=== PATIENT | male | born 1945 | race Caucasian/White ===

== ENCOUNTER 2017-05-04 13:44 | Emergency (ER) | payer MEDICARE, SELFPAY ==
--- NOTE | 2017-05-04 10:41 | ECHOL_ITS ---
Reason For Study: Cardiac arrest Procedure This was a limited 2D transthoracic echocardiogram. Exam performed portable in ED. Left Ventricle Severely dilated left ventricle. The estimated ejection fraction is 7 %. Severe segmental systolic dysfunction (see wall motion). Severe hypokinesis of the mid anteroesptal wall. Akinetic ventricle. Right Ventricle Normal RV size. Moderately severe global right ventricular systolic dysfunction. Mitral Valve Moderate (2+) eccentric mitral valve insufficiency. Pericardium/Pleural No pericardial effusion. MMode/2D Measurements & Calculations LVIDd: 6.5 cm IVSd: 1.1 cm Ao root diam: 2.8 cm LVIDs: 5.9 cm LVPWd: 1.5 cm RVDd: 3.3 cm FS: 10.1 % LAV(MOD-sp4): 55.1 ml LA A4 area: 20.7 cm2 RA A4 area: 17.1 cm2 Interpretation Summary Severely dilated left ventricle. The estimated ejection fraction is 7 %. Severe segmental systolic dysfunction (see wall motion). Moderate (2+) eccentric mitral valve insufficiency. Ordering Physician: Donn Woo Referring Physician: Donn Woo Performed By: Ibeth Vicente RDCS
[2017-05-04 13:45] VITALS: BP 102/80; PULSE 40; RESP 18
[2017-05-04 13:47] VITALS: BP 100/67; PULSE 40; RESP 20; O2SAT 99; BMI 27.6
[2017-05-04 13:56] VITALS: PULSE 40; RESP 14; O2SAT 96
--- NOTE | 2017-05-04 14:27 | ED.RN ---
MULTIPLE ATTEMPTS TO CONTACT (SO) AND DAUGHTER (FELICIA) BY PHONE. NO RESPONSE. CALL TO [facility] AT THE [facility] TO INQUIRE ABOUT FAMILY. STATED, NO FAMILY WITH PATIENT AT THE [facility].
[2017-05-04 14:36] LABS: Absolute Lymphocyte Count 4.06 X10^3/ul (0.83-4.51); Absolute Neutrophil Count 4.2 X10^3/uL (2.0-7.7); Basophil# 0.04 X10^3/uL; Basophil% 0.4 % (0-1); Eosinophil# 0.16 X10^3/uL; Eosinophils% 1.7 % (0-5); Hemoglobin 7.9 g/dl (13.0-16.5); Lymphocyte # 4.06 X10^3/ul (4.0); Lymphocyte % 43.4 % (19-41); Mean Corp Hgb Conc 31.6 g/gl (32-36); Mean Corpuscular Hgb 34.3 pg (27.0-32.0); Mean Corpuscular Volume 108.7 fL (80-94); Monocyte# 0.78 X10^3/uL; Monocyte% 8.3 % (0-10); Neutrophil # 4.16 X10^3/uL (2.7-7.7); Neutrophil % 44.6 % (47-70); Platelet Count 69 K/mm3 (150-450); RBC Distribution Width CV 15.1 % (11.6-14.6); RBC Distribution Width SD 58.8 fl (35.1-43.9); White Blood Count 9.4 K/mm3 (4.4-11.0)
[2017-05-04 14:37] LABS: Base Excess -25 mmol/L (-2 to +2); Bicarbonate 7.6 mmol/L (22-26); Blood Gas Specimen Type ART; FI02 100; PO2 523 mmHG (75-100); SITE L Femoral; SO2 100 % (95-99); Time Given 1440; Total Carbon Dioxide 9 mmol/L; pCO2 35.8 mmHg (35-45); pH 6.94 (7.35-7.45)
[2017-05-04 14:38] LABS: Differential Indicated SCAN CRITERIA MET; POSITIVE COUNT NO; POSITIVE DIFFERENTIAL NO; POSITIVE MORPHOLOGY YES
[2017-05-04 14:39] LABS: Absolute Nucleated RBC Count 0.24 10^3/uL (0-5); NRBC Flagged by Analyzer 2.6 % (0-5)
[2017-05-04 14:43] LABS: AST(SGOT) 39 U/L (15-37); Alanine Aminotransfer ALT/SGPT 51 U/L (12-78); Albumin, Serum 3.2 g/dL (3.4-5.0); Alkaline Phosphatase 48 U/L (45-117); Anion Gap 18 (5-15); BUN 29 mg/dL (7-18); BUN/Creat Ratio 15.2 RATIO (10-20); Bilirubin, Direct 0.13 mg/dL (0.00-0.30); Calcium,Total 8.6 mg/dL (8.5-10.1); Chloride 105 mmol/L (98-107); Creatinine, Serum 1.91 mg/dL (0.70-1.30); EST Glomerular Filtration Rate 37 mL/min (>60); Est Glom Filt Rate - Afr Amer 45 mL/min (>60); Estimated Creatinine Clearance 33.17 ml/min; Globulin 3.3 g/dL (2.3-3.5); Glucose 291 mg/dL (70-110); Lipase 149 U/L (73-393); Potassium 5.4 mmol/L (3.5-5.1); Protein, Total 6.5 g/dL (6.4-8.2); Sodium Level 139 mmol/L (136-145)
[2017-05-04 14:47] LABS: International Normalized Ratio 1.5; Prothrombin Time (Protime)PT. 17.6 SECONDS (11.7-14.9)
[2017-05-04 14:48] LABS: Partial Thromboplast Time 36.2 Seconds (24.1-36.2)
--- NOTE | 2017-05-04 15:11 | CHAPLAIN ---
Responded to Code in ED; patient is being attended to by medical team; consulted staff to see if family members were present; staff is making attempts to contact family but were not successful; pt was moved to [employer] [facility] [employer] [facility];
--- NOTE | 2017-05-04 15:31 | ED.VISSUMM ---
- ER Visit Summary Date of Service: 05/04/17 Chief Complaint: Cardiac arrest History of Present Illness: The patient is a 72 M who was out at the [facility] today when he suddenly collapsed. Standing nearby was a sharepoint application architect who did not feel a pulse and began CPR. He was more responsive for squad in route saying basically 1-2 word sentences. Upon arrival in the ER the patient is clutching his chest and I asked him if he is hurting and he watches his chest. He is able to tell me 1 word sentences in between agonal breaths. Physical Examination: Patient is bradycardic and 40. This appears paced respirations are 32 and agonal 99% on nonrebreather blood pressure 100/67 Gen: Well-nourished well-developed Head: Normocephalic atraumatic Eyes: Perrl EOMI ENT: TMs clear no rhinorrhea moist mucous membranes Neck: Supple no lymphadenopathy no JVD nontender there is a dusky purple hue to his chest and neck CVS: Patient is bradycardic no significant murmur Respiratory: Agonal respirations Abdomen: Soft nontender nondistended normal bowel sounds no masses Back: Nontender Extremity: Nontender no edema Skin: Parlor diaphoretic purplish hue to neck and upper chest Neuro: Lethargic unable to participate in neurologic exam Test Results: EKG demonstrates a ventricular paced rhythm at a rate of 40. When compared to prior concerning features R in V3 V4 with concerning for acute coronary syndrome Emergency Department Course and Treatment: Need for protection of the airway was immediately recognized. Patient underwent RSI and an 80 endotracheal tube was placed on the first attempt without any difficulty. I equal breath sounds and good color change noted. I spoke with Dr. Melgar who is on-call for cardiology who was scrubbed in the [facility]. who is the STEMI doctor came to the emergency department. The patient went into cardiac arrest. ACLS was performed with return of circulation. Labs were drawn from a left femoral vena puncture by this physician as well as an ABG. His were done under ultrasound guidance. The patient continued to alternate between cardiac arrest and return of circulation. Decision to transport the patient to the [facility] was made. Discussion for hypothermia was made and interventionalists declined at the current time. Disposition: Admit Impression: 1. Acute coronary syndrome 2. Cardiac arrest 3. Intubation by emergency physician 4. Critical care time 35 minutes ED Disposition - Plan for ED Patient: Disposition: Acute Care Hospital [facility] Chief Complaint: Unresponsive Referrals: Ingrid Jauregui DO [Primary Care Provider] -
--- NOTE | 2017-05-04 15:36 | ED.DCSUM_ITS ---
- ER Visit Summary Date of Service: 05/04/17 Chief Complaint: Cardiac arrest History of Present Illness: The patient is a 72 M who was out at the [facility] today when he suddenly collapsed. Standing nearby was a overcaster who did not feel a pulse and began CPR. He was more responsive for squad in route saying basically 1-2 word sentences. Upon arrival in the ER the patient is clutching his chest and I asked him if he is hurting and he watches his chest. He is able to tell me 1 word sentences in between agonal breaths. Physical Examination: Patient is bradycardic and 40. This appears paced respirations are 32 and agonal 99% on nonrebreather blood pressure 100/67 Gen: Well-nourished well-developed Head: Normocephalic atraumatic Eyes: Perrl EOMI ENT: TMs clear no rhinorrhea moist mucous membranes Neck: Supple no lymphadenopathy no JVD nontender there is a dusky purple hue to his chest and neck CVS: Patient is bradycardic no significant murmur Respiratory: Agonal respirations Abdomen: Soft nontender nondistended normal bowel sounds no masses Back: Nontender Extremity: Nontender no edema Skin: Parlor diaphoretic purplish hue to neck and upper chest Neuro: Lethargic unable to participate in neurologic exam Test Results: EKG demonstrates a ventricular paced rhythm at a rate of 40. When compared to prior concerning features R in V3 V4 with concerning for acute coronary syndrome Emergency Department Course and Treatment: Need for protection of the airway was immediately recognized. Patient underwent RSI and an 80 endotracheal tube was placed on the first attempt without any difficulty. I equal breath sounds and good color change noted. I spoke with Dr. Melgar who is on-call for cardiology who was scrubbed in the Road Machine Operator. who is the STEMI doctor came to the emergency department. The patient went into cardiac arrest. ACLS was performed with return of circulation. Labs were drawn from a left femoral vena puncture by this physician as well as an ABG. His were done under ultrasound guidance. The patient continued to alternate between cardiac arrest and return of circulation. Decision to transport the patient to the Road Machine Operator was made. Discussion for hypothermia was made and interventionalists declined at the current time. Disposition: Admit Impression: 1. Acute coronary syndrome 2. Cardiac arrest 3. Intubation by emergency physician 4. Critical care time 35 minutes ED Disposition - Plan for ED Patient: Disposition: Acute Care Hospital [facility] Chief Complaint: Unresponsive Referrals: Ingrid Jauregui DO [Primary Care Provider] -
--- NOTE | 2017-05-04 16:14 | HP.PCM_ITS ---
History of Present Illness Date of Admission: 05/04/17 Chief Complaint: Cardiac arrest The patient is a 72 year old M with history of AICD, probably because of systolic heart failure, for secondary prevention about 12 years ago was brought in to ER in unresponsive and unconscious state. Hard to that, patient was found collapsed in [facility] and was started CPR by a schedule planning manager at the scene. As per ER note, patient was found responsive foreshorten by squad. He was found to have clutching his chest in the ER, In the ER, was bradycardic, heart rate 40s, respiratory rate 32 with agonal breathing, BP 100/67, then was unresponsive and CODE BLUE was called. ACLS was performed with return of circulation. Patient was intubated. EKG shows ventricular paced rhythm at 40 bpm. Pt was taken to Embedded Nurse. [] ABG showed pH 6.94/35/ 523 on umbo bag. CBC shows hemoglobin 7.9, platelet count 69, WBC 9.4 thousand. Chemistry significant for acute kidney injury, creatinine 1.91, baseline creatinine 1.44 on 04/29/2017. K5.4. G 291. Patient had bone marrow biopsy on 04/09/17 which reported as mild increase of plasma cells, polytypic in nature. Lymphocytes polytypic in nature. Past Medical History Allergies No Known Allergies Allergy (Verified 04/08/17 13:29) Home Medications: Ambulatory Orders Medication Instructions Recorded Carvedilol [Coreg] 12.5 mg PO BID 04/06/17 Digoxin [Lanoxin] 125 mcg PO DAILY 04/06/17 Furosemide [Lasix] 40 mg PO DAILY 04/06/17 Glimepiride [Amaryl] 4 mg PO BID 04/06/17 Levothyroxine Sodium [Levoxyl] 75 mcg PO DAILY 04/06/17 Metformin HCl [Metformin HCl ER] 500 mg PO TID 04/06/17 Simvastatin [Zocor] 20 mg PO QHS 04/06/17 Spironolactone [Aldactone] 25 mg PO DAILY 04/06/17 Valsartan [Diovan] 80 mg PO DAILY 04/06/17 Brimonidine Tartrate/Timolol 5 ml OP BID 04/08/17 [Combigan 0.2%-0.5% Eye Drops] Cholecalciferol (Vitamin D3) 1,000 capsule PO DAILY 04/08/17 [Vitamin D3] Dorzolamide 2% 1 drop LEFT EYE BID 04/08/17 Ferrous Sulfate [Iron] 325 mg PO DAILY 04/08/17 Latanoprost 0.005% [Xalatan 1 drop RIGHT EYE DAILY 04/08/17 Opthalmic] Smoking Status: Former smoker - Physical Exam Vital Signs Temp Pulse Resp BP Pulse Ox 40 20 100/67 99 05/04/17 13:47 05/04/17 13:47 05/04/17 13:47 05/04/17 13:47 Oxygen Delivery Method Non-Rebreather Weight: 80.2 kg Body Mass Index (BMI) 27.6 Laboratory Tests Past 24 Hrs 05/04/17 05/04/17 05/04/17 14:11 14:11 14:11 WBC 9.4 RBC 2.30 L Hgb 7.9 L Hct 25.0 L MCV 108.7 H MCH 34.3 H MCHC 31.6 L RDW 15.1 H RDW Differential 58.8 H Plt Count 69 L Immature Gran % (Auto) 1.600 H Neut % (Auto) 44.6 L Lymph % (Auto) 43.4 H Hamlin % (Auto) 8.3 Eos % (Auto) 1.7 Baso % (Auto) 0.4 Absolute Neuts (auto) 4.2 Absolute Lymphs (auto) 4.06 Total Counted Not Reportable Nucleated RBC % 2.6 Differential Comment COMMENT Diff Path Review May foll Absolute Retic 0.24 PT 17.6 H INR 1.5 APTT 36.2 Specimen Type Sample Site pH Bicarbonate Actual POC Total CO2 Base Excess O2 Saturation O2 % ABG pCO2 ABG pO2 Davie Test O2 Delivery Device Blood Gas Notified Whom Blood Gas Notified Time Sodium 139 Potassium 5.4 H Chloride 105 Carbon Dioxide 16.0 L Anion Gap 18 H BUN 29 H Creatinine 1.91 H Estim Creat Clear Calc 33.17 Est GFR (MDRD) Af Amer 45 L Est GFR (MDRD) Non-Af 37 L BUN/Creatinine Ratio 15.2 Glucose 291 H Calcium 8.6 Total Bilirubin 0.30 Direct Bilirubin 0.13 AST 39 H ALT 51 Alkaline Phosphatase 48 Troponin I 0.09 H Total Protein 6.5 Albumin 3.2 L Globulin 3.3 Lipase 149 05/04/17 14:32 WBC RBC Hgb Hct MCV MCH MCHC RDW RDW Differential Plt Count Immature Gran % (Auto) Neut % (Auto) Lymph % (Auto) Hamlin % (Auto) Eos % (Auto) Baso % (Auto) Absolute Neuts (auto) Absolute Lymphs (auto) Total Counted Nucleated RBC % Differential Comment Diff Path Review Absolute Retic PT INR APTT Specimen Type ART Sample Site L Femoral pH 6.94 L* Bicarbonate Actual 7.6 L POC Total CO2 9 Base Excess -25 L O2 Saturation 100 H O2 % 100 ABG pCO2 35.8 ABG pO2 523 H* Davie Test NA O2 Delivery Device Ambu Blood Gas Notified Whom ED Blood Gas Notified Time 1440 Sodium Potassium Chloride Carbon Dioxide Anion Gap BUN Creatinine Estim Creat Clear Calc Est GFR (MDRD) Af Amer Est GFR (MDRD) Non-Af BUN/Creatinine Ratio Glucose Calcium Total Bilirubin Direct Bilirubin AST ALT Alkaline Phosphatase Troponin I Total Protein Albumin Globulin Lipase
--- NOTE | 2017-05-04 17:44 | CL.I_ITS ---
Patient Name: VICENTA HECK Study Date: 05/04/2017 Performing: Donn Woo MD Ht: 66.92 inches 170 cm : 1945 Wt: 176.37 lbs 80 kg Age: 72 Gender: male BSA: 1.92 PROCEDURE(S) PERFORMED [id number] W OR WO PTCA, SINGLE CORONARY ARTERY [id number] W OR WO PTCA, SINGLE CORONARY ARTERY [id number] INSERTION CLINICAL PROFILE AND CO-MORBIDITIES CAD Presentations: Other: Salvage case, CPR performed prior to cath and during. CONCLUSIONS 100% distal LMCA with thrombus IABP inserted for cardiogenic shock Successful PCI with aspiration thrombectomy and PTCA with 3.5 mm balloon Successful PCI with Bare metal stent to the Prox LAD using 3.0x15 mm Rebel Successful PCI with Bare metal stent to the Prox LCX using Integrity 3.0x15 mm RECOMMENDATIONS PCI to LMCA ASA Indefinitley Brilinta for at least 12 months Critical care CORONARY ANGIOGRAPHY DOMINANCE: Right Dominant LEFT MAIN: 100% distal RIGHT CORONARY ARTERY: 40% Prox, 40% Mid INTERVENTION INFORMATION LESION SITE: Left Main (Proximal) Lesion Complexity: High/C Pre Stenosis: 100 % Pre intervention DARIEN flow: 0 PROCEDURE: Aspiration thrombectomy and PTCA Post Stenosis: 0 % Post intervention DARIEN flow: 3 Lesion Devices: Arrow 40cc 7.5F UltraFlex IABP Medtronic 6 Fr. [place] AP Aspiration Catheter Terumo .014 Runthrough Extra Floppy 180cm straight Cordis 6 Fr XB3.5 100cm Guide Catheter Rubio Sci EMERGE MR 3.00x20 BALLOON Rubio Sci EMERGE MR 3.50x20 BALLOON Suarez .014 BMW [place] Straight 190cm LESION SITE: LAD (Proximal) Pre Stenosis: 100 % Pre intervention DARIEN flow: 0 Post Stenosis: 0 % Post intervention DARIEN flow: 3 Lesion Devices: Suarez .014 BMW [place] Straight 190cm Medtronic Integrity RX BMS 3.0x15 LESION SITE: LAD (Proximal) thrombus present: Yes, Lesion Complexity: High/C Pre Stenosis: 100 % Pre intervention DARIEN flow: 0 0 % Post intervention DARIEN flow: 3 Lesion Devices: Terumo .014 Runthrough Extra Floppy 180cm straight Rubio Sci Rebel MR BMS 3.00x16 COMPLICATIONS Cardiogenic Shock No Complications PROCEDURE MEDICATIONS Brilinta 180 mg PO 05/04/2017 16:34:47 Aspirin (325mg) 1 Tabs PO 05/04/2017 16:34:58 Epinephrine 1mg/10ml 1 amp 05/04/2017 14:37:58 Epinephrine 1mg/10ml 1 amp 05/04/2017 14:40:13 Epinephrine 1mg/10ml 1 amp 05/04/2017 14:43:42 Epinephrine 1mg/10ml 1 amp 05/04/2017 14:47:48 Epinephrine 1mg/10ml 1 amp 05/04/2017 14:59:04 Epinephrine 1mg/10ml 1 amp 05/04/2017 15:08:14 Epinephrine 1mg/10ml 1 amp 05/04/2017 15:28:20 Epinephrine 4 mg / 250ml D5W @ mcg/min IV started 05/04/2017 16:10:03 Epinephrine 5 mg / 250ml D5W @ 10 mcg/min increased rate 05/04/2017 16:22:50 Epinephrine 5 mg / 250ml D5W @ 25 mcg/min increased rate 05/04/2017 16:38:55 Heparin 6000 unit(s) IV 05/04/2017 15:10:58 Heparin 2000 unit(s) IV 05/04/2017 15:26:43 Sodium Bicarbonate 50meq/50ml 2 amp 05/04/2017 14:42:31 Sodium Bicarbonate 50meq/50ml 1 amp 05/04/2017 14:54:38 Sodium Bicarbonate 50meq/50ml 1 amp 05/04/2017 15:15:11 Sodium Bicarbonate 50meq/50ml 2 amp 05/04/2017 15:33:46 Sodium Bicarbonate 50meq/50ml 2 amp 05/04/2017 15:49:23 Sodium Bicarbonate 50meq/50ml 2 amp 05/04/2017 17:11:10 IV Bolus: .9 NaCl 1750ml total 05/04/2017 17:05:04 SUMMARY OF HEMODYNAMIC DATA Time AIR REST ECG 14:59:24 ECG 14:59:27 AO 67/42 (51) SA 15:06:43 AO 53/26 (37) 15:14:22 AO 32/25 (27) 15:14:43 AO 93/24 (56) 15:21:24 Signed By Donn Woo MD On 05/04/2017 5:43:41 PM Donn Woo MD
--- NOTE | 2017-05-04 17:49 | PCM.CONS.C ---
Problem List (1) Cardiac arrest Status: Acute (2) Shock, cardiogenic Status: Acute Reason for Consult Date of Consultation: 05/04/17 History of Present Illness: The patient is a 72 year old M with past medical history significant for cardiomyopathy status post ICD placement, hypertension and diabetes mellitus. He had a witnessed cardiac arrest [place] in [place] [employer]. An off-duty EMS person started CPR. The patient had a total downtime of about 10 minutes. His pulse then recovered. He was brought to the emergency room. According to the ER physician, the patient complained of some chest pain before he started agonal breathing and had to be intubated. Whilst in the emergency room, the patient's pulse was lost again. He underwent CPR according to the ACLS protocol. A bedside ICD interrogation was made which failed to show any events of ventricular tachycardia or ventricular fibrillation. A quick bedside echocardiogram showed severe LV systolic dysfunction with ejection fraction of about 5-10%. Given the patient's overall situation, it was decided to perform emergent coronary angiography and possible revascularization. Patient was brought to the cardiac catheterization lab. For the procedure could be started, the patient again had pulseless pacemaker electrical activity. Once again CPR was initiated and we were able in getting his pulse back. His pressures however remained in the 60s and 70 mmHg. [] Past Medical History Allergies/Adverse Reactions: Allergies No Known Allergies Allergy (Verified 04/08/17 13:29) Home Medications: Ambulatory Orders Medication Instructions Recorded Carvedilol [Coreg] 12.5 mg PO BID 04/06/17 Digoxin [Lanoxin] 125 mcg PO DAILY 04/06/17 Furosemide [Lasix] 40 mg PO DAILY 04/06/17 Glimepiride [Amaryl] 4 mg PO BID 04/06/17 Levothyroxine Sodium [Levoxyl] 75 mcg PO DAILY 04/06/17 Metformin HCl [Metformin HCl ER] 500 mg PO TID 04/06/17 Simvastatin [Zocor] 20 mg PO QHS 04/06/17 Spironolactone [Aldactone] 25 mg PO DAILY 04/06/17 Valsartan [Diovan] 80 mg PO DAILY 04/06/17 Brimonidine Tartrate/Timolol 5 ml OP BID 04/08/17 [Combigan 0.2%-0.5% Eye Drops] Cholecalciferol (Vitamin D3) 1,000 capsule PO DAILY 04/08/17 [Vitamin D3] Dorzolamide 2% 1 drop LEFT EYE BID 04/08/17 Ferrous Sulfate [Iron] 325 mg PO DAILY 04/08/17 Latanoprost 0.005% [Xalatan 1 drop RIGHT EYE DAILY 04/08/17 Opthalmic] - *Family History Paternal History Items: - - Not known at the time. . Smoking Status: Former smoker Review of Systems - Review of Systems General: Reports: - - Unable to obtain. Patient intubated. Subjectve: Patient intubated. Sedated. Unresponsive. Objective: Vital Signs Temp Pulse Resp BP Pulse Ox 40 20 100/67 99 05/04/17 13:47 05/04/17 13:47 05/04/17 13:47 05/04/17 13:47 General: - - Pale. Tubulated. HEENT: Atraumatic, Normocephalic Neck: Supple, No JVD Lungs: Diminished Jose Bases Cardiovascular: Normal S1, Normal S2 Vascular: - - Thready pulses all over. Abdomen: Bowel Sounds Present, Soft Extremities: No edema, Cool Neurological: - - Unable to assess. Psych/Mental Status: - - Unable to assess Rhythm: Ventricular paced rhythm EKG: EKG showed ventricular paced rhythm. Underlying third-degree AV block. ECHO: Severe LV systolic dysfunction. Ejection fraction estimated at 5-10%. Assessment/Plan Assessment: 1. Cardiogenic shock 2. Status post cardiac arrest with pacemaker pulseless electrical activity 3. History of cardiomyopathy. Status post ICD placement 4. Diabetes mellitus. Recommendations: 1. Patient was taken emergently to the cardiac catheterization lab to evaluate his coronary anatomy and possible revascularization. Coronary angiography revealed 100% occlusion of the distal left main coronary artery. Patient remained in cardiogenic shock. An intra-aortic balloon pump was inserted for him. Access for percutaneous revascularization was performed to the distal left main coronary artery with aspiration thrombectomy and balloon angioplasty. After opening of the left main coronary artery, it was noted that the proximal left circumflex coronary artery was also 100% occluded with thrombus. This was treated using balloon angioplasty and a bare-metal stent. The proximal LAD was also noted to have some ulcerative lesion. This was treated using a bare-metal stent. DARIEN-3 flow was restored. Excellent results were obtained. No residual lesion was noted in the distal left main coronary artery. Patient was started on dopamine, epinephrine and Levophed infusions. However with these pharmacological inotropic support and with intra-aortic balloon pump, his pressure remained at best in the low 70s and in the 60s. We made a call to the [facility] to see if they would accept the patient with the possibility of possibly placing an Impala device for the patient. The patient was accepted by them and Medvec sent in route X While waiting for the ear ambulance, the patient lost his pulse again. Cord was ran according to ACLS guidelines. We were however unable to resuscitate the patient. After multiple attempts at resuscitation, the code was called off and the patient was pronounced . Total critical care time was more than an hour.
--- NOTE | 2017-05-04 17:55 | PCM.DEATH ---
Preliminary Cause of acute myocardial infarction with cardiogenic shock Date of Admission: 05/04/17 Date of : 05/04/17 - 17:32 - Principle Diagnosis acute myocardial infarction with cardiogenic shock due to 100% occlusion of distal left main coronary artery Problem List: CAD severe cardiomyopathy HTN HLD DM II Hypothyroidism AICD Macrocytic Anemia Thrombocytopenia Glaucoma Hospital Course Mr. Lane was a 72 YO male with a PMH of hypertension, diabetes mellitus type 2, hyperlipidemia, coronary artery disease, hypothyroidism, severe ischemic cardiomyopathy and AICD who was at the [facility] when he collapsed in front of the [employer]. A parasitologist was in the vicinity and when he felt no pulse immediately started CPR. Patient was brought to [facility] emergency room where he was noted to have agonal respirations and mottling of the skin. He was immediately intubated. EKG in the emergency room showed a ventricular paced rhythm at 40 bpm. There was a new R-wave in lead V3 and V4 concerning for acute coronary syndrome/acute myocardial infarction. Dr. Woo from interventional cardiology was consulted and saw the patient in the emergency room. He went into cardiac arrest while in the ER and ACLS was initiated with spontaneous return of circulation. He received aspirin, Brilinta and Integrilin. He was taken to the [facility] [employer] and found to have a 100% occlusion of the distal left main coronary artery. An intra-aortic balloon pump was inserted for cardiogenic shock. Successful PCI with aspiration thrombectomy and PTCA with 3.5 mm balloon was performed on the left main. He also had PCI with bare-metal stent to the proximal LAD and PCI with bare-metal stent to the proximal left circumflex. Post catheterization, while still in the clinical lab specialist he had cardiac arrest, VT and Vfib. ACLS protocol was initiated and CPR was performed for approximately 45 minutes. He had multiple rounds of EPI and bicarb and Amiodarone was started. He also had 100 mg of Lidocaine IV for resistant VT/VF. Levophed and Vasopressin were utilized when the BP did not adequately respond to EPI alone. A bedside hand held ECHO was done near the end of the 45 minutes and he had no wall motion. He was pronounced at 17:32. Dr. Mcdermott from the security tester's office was notified by myself and she released the body. He was taken to the ER for his family to view the body following removal of all tubes and IV's. The family met with Dr. Woo after the code concluded and he answered all their questions. This note was generated with [employer] software. It may contain incorrect words, spelling, and punctuation that were not noted in checking the note before signing.
--- NOTE | 2017-05-04 18:00 | CON.PCM_ITS ---
Problem List (1) Cardiac arrest Status: Acute (2) Shock, cardiogenic Status: Acute Reason for Consult Date of Consultation: 05/04/17 History of Present Illness: The patient is a 72 year old M with past medical history significant for cardiomyopathy status post ICD placement, hypertension and diabetes mellitus. He had a witnessed cardiac arrest [place] in [place] [employer]. An off- duty EMS person started CPR. The patient had a total downtime of about 10 minutes. His pulse then recovered. He was brought to the emergency room. According to the ER physician, the patient complained of some chest pain before he started agonal breathing and had to be intubated. Whilst in the emergency room, the patient's pulse was lost again. He underwent CPR according to the ACLS protocol. A bedside ICD interrogation was made which failed to show any events of ventricular tachycardia or ventricular fibrillation. A quick bedside echocardiogram showed severe LV systolic dysfunction with ejection fraction of about 5-10%. Given the patient's overall situation, it was decided to perform emergent coronary angiography and possible revascularization. Patient was brought to the cardiac catheterization lab. For the procedure could be started , the patient again had pulseless pacemaker electrical activity. Once again CPR was initiated and we were able in getting his pulse back. His pressures however remained in the 60s and 70 mmHg. [] Past Medical History Allergies/Adverse Reactions: Allergies No Known Allergies Allergy (Verified 04/08/17 13:29) Home Medications: Ambulatory Orders Medication Instructions Recorded Carvedilol [Coreg] 12.5 mg PO BID 04/06/17 Digoxin [Lanoxin] 125 mcg PO DAILY 04/06/17 Furosemide [Lasix] 40 mg PO DAILY 04/06/17 Glimepiride [Amaryl] 4 mg PO BID 04/06/17 Levothyroxine Sodium [Levoxyl] 75 mcg PO DAILY 04/06/17 Metformin HCl [Metformin HCl ER] 500 mg PO TID 04/06/17 Simvastatin [Zocor] 20 mg PO QHS 04/06/17 Spironolactone [Aldactone] 25 mg PO DAILY 04/06/17 Valsartan [Diovan] 80 mg PO DAILY 04/06/17 Brimonidine Tartrate/Timolol 5 ml OP BID 04/08/17 [Combigan 0.2%-0.5% Eye Drops] Cholecalciferol (Vitamin D3) 1,000 capsule PO DAILY 04/08/17 [Vitamin D3] Dorzolamide 2% 1 drop LEFT EYE BID 04/08/17 Ferrous Sulfate [Iron] 325 mg PO DAILY 04/08/17 Latanoprost 0.005% [Xalatan 1 drop RIGHT EYE DAILY 04/08/17 Opthalmic] - *Family History Paternal History Items: - - Not known at the time. . Smoking Status: Former smoker Review of Systems - Review of Systems General: Reports: - - Unable to obtain. Patient intubated. Subjectve: Patient intubated. Sedated. Unresponsive. Objective: Vital Signs Temp Pulse Resp BP Pulse Ox 40 20 100/67 99 05/04/17 13:47 05/04/17 13:47 05/04/17 13:47 05/04/17 13:47 General: - - Pale. Tubulated. HEENT: Atraumatic, Normocephalic Neck: Supple, No JVD Lungs: Diminished Jose Bases Cardiovascular: Normal S1, Normal S2 Vascular: - - Thready pulses all over. Abdomen: Bowel Sounds Present, Soft Extremities: No edema, Cool Neurological: - - Unable to assess. Psych/Mental Status: - - Unable to assess Rhythm: Ventricular paced rhythm EKG: EKG showed ventricular paced rhythm. Underlying third-degree AV block. ECHO: Severe LV systolic dysfunction. Ejection fraction estimated at 5-10%. Assessment/Plan Assessment: 1. Cardiogenic shock 2. Status post cardiac arrest with pacemaker pulseless electrical activity 3. History of cardiomyopathy. Status post ICD placement 4. Diabetes mellitus. Recommendations: 1. Patient was taken emergently to the cardiac catheterization lab to evaluate his coronary anatomy and possible revascularization. Coronary angiography revealed 100% occlusion of the distal left main coronary artery. Patient remained in cardiogenic shock. An intra-aortic balloon pump was inserted for him. Access for percutaneous revascularization was performed to the distal left main coronary artery with aspiration thrombectomy and balloon angioplasty. After opening of the left main coronary artery, it was noted that the proximal left circumflex coronary artery was also 100% occluded with thrombus. This was treated using balloon angioplasty and a bare-metal stent. The proximal LAD was also noted to have some ulcerative lesion. This was treated using a bare-metal stent. DARIEN-3 flow was restored. Excellent results were obtained. No residual lesion was noted in the distal left main coronary artery. Patient was started on dopamine, epinephrine and Levophed infusions. However with these pharmacological inotropic support and with intra-aortic balloon pump , his pressure remained at best in the low 70s and in the 60s. We made a call to the [facility] to see if they would accept the patient with the possibility of possibly placing an Impala device for the patient. The patient was accepted by them and Medvec sent in route X While waiting for the ear ambulance, the patient lost his pulse again. Cord was ran according to ACLS guidelines. We were however unable to resuscitate the patient. After multiple attempts at resuscitation, the code was called off and the patient was pronounced . Total critical care time was more than an hour.
[2017-05-04 18:06] LABS: Base Excess -11 mmol/L (-2 to +2); Bicarbonate 17.8 mmol/L (22-26); Blood Gas Specimen Type ART; PO2 64 mmHG (75-100); SITE R Femoral; SO2 85 % (95-99); Total Carbon Dioxide 19 mmol/L; pCO2 51.9 mmHg (35-45); pH 7.14 (7.35-7.45)
[2017-05-04 18:06] LABS: Base Excess -15 mmol/L (-2 to +2); Bicarbonate 14.4 mmol/L (22-26); Blood Gas Specimen Type ART; PO2 83 mmHG (75-100); SO2 91 % (95-99); Total Carbon Dioxide 16 mmol/L; pCO2 47.6 mmHg (35-45); pH 7.09 (7.35-7.45)
[2017-05-04 18:06] LABS: ACT Activated Clotting Time 268 sec (74-137)
[2017-05-04 18:06] LABS: Base Excess -15 mmol/L (-2 to +2); Bicarbonate 14.6 mmol/L (22-26); Blood Gas Specimen Type ART; PO2 176 mmHG (75-100); SO2 99 % (95-99); Total Carbon Dioxide 16 mmol/L; pCO2 47.1 mmHg (35-45)
--- NOTE | 2017-05-04 18:23 | EXP.PCM_ITS ---
Preliminary Cause of acute myocardial infarction with cardiogenic shock Date of Admission: 05/04/17 Date of : 05/04/17 - 17:32 - Principle Diagnosis acute myocardial infarction with cardiogenic shock due to 100% occlusion of distal left main coronary artery Problem List: CAD severe cardiomyopathy HTN HLD DM II Hypothyroidism AICD Macrocytic Anemia Thrombocytopenia Glaucoma Hospital Course Mr. Lane was a 72 YO male with a PMH of hypertension, diabetes mellitus type 2, hyperlipidemia, coronary artery disease, hypothyroidism, severe ischemic cardiomyopathy and AICD who was at the [facility] when he collapsed in front of the [employer] tent. A typewriter aligner was in the vicinity and when he felt no pulse immediately started CPR. Patient was brought to [facility] emergency room where he was noted to have agonal respirations and mottling of the skin. He was immediately intubated. EKG in the emergency room showed a ventricular paced rhythm at 40 bpm. There was a new R-wave in lead V3 and V4 concerning for acute coronary syndrome/acute myocardial infarction. Dr. Woo from interventional cardiology was consulted and saw the patient in the emergency room. He went into cardiac arrest while in the ER and ACLS was initiated with spontaneous return of circulation. He received aspirin, Brilinta and Integrilin. He was taken to the [facility] and found to have a 100% occlusion of the distal left main coronary artery. An intra-aortic balloon pump was inserted for cardiogenic shock. Successful PCI with aspiration thrombectomy and PTCA with 3.5 mm balloon was performed on the left main. He also had PCI with bare-metal stent to the proximal LAD and PCI with bare-metal stent to the proximal left circumflex. 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 ACLS protocol was initiated and CPR was performed for approximately 45 minutes. He had multiple rounds of EPI and bicarb and Amiodarone was started. He also had 100 mg of Lidocaine IV for resistant VT/VF. Levophed and Vasopressin were utilized when the BP did not adequately respond to EPI alone. A bedside hand held ECHO was done near the end of the 45 minutes and he had no wall motion. He was pronounced at 17:32. Dr. Mcdermott from the chisel grinder's office was notified by myself and she released the body. He was taken to the ER for his family to view the body following removal of all tubes and IV's. The family met with Dr. Woo after the code concluded and he answered all their questions. This note was generated with [employer] software. It may contain incorrect words, spelling, and punctuation that were not noted in checking the note before signing.
--- NOTE | 2017-05-04 18:25 | CASEMGMT ---
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 Multiple family members present. Was present with family as physicians spoke to them after patient was pronounced . 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 Provided emotional support and active listening as family spoke of patient and memories they have of him. Patient's provided this [employer]ER with name of [facility] for arrangements to be made. Provided Nita RN with 's (Heidi) contact information as well as 's choice of [facility]. NIKUNJ Barry
--- NOTE | 2017-05-04 18:42 | CPS ---
RT was at bedside when patient was brought in by EMS. Patient was intubated with a 8.0 ET tube @ 24 at the lip. Tube was secure. Patient was taken to laborer wood preserving plant by Nurse and RT. Patient was on and off the vent with RT bagging. RT was at bedside in laborer wood preserving plant for the entire procedure. Patients vent settings were Vt 500 R 16 100% +8 I-time 0.9. Rosemary Dave RRT
--- NOTE | 2017-05-04 20:48 | ED.RN ---
[facility] TO ED TO TRANSPORT PATIENT. BELONGINGS LIST COMPLETED.
[2017-05-05 10:03] LABS: Pathologist Review Reviewed
== END 2017-05-04 20:50 ==
PROVIDERS: Internal Medicine; Emergency Provider Emergency Medicine; Family Provider Internal Medicine; PCP Internal Medicine
DX: I21.4 Non-ST elevation (NSTEMI) myocardial infarction (principal); I25.10 Atherosclerotic heart disease of native coronary artery without angina pectoris; I25.5 Ischemic cardiomyopathy; I11.0 Hypertensive heart disease with heart failure; I46.2 Cardiac arrest due to underlying cardiac condition; I50.9 Heart failure, unspecified; I24.9 Acute ischemic heart disease, unspecified; E11.9 Type 2 diabetes mellitus without complications; E78.00 Pure hypercholesterolemia, unspecified; E03.9 Hypothyroidism, unspecified; D46.9 Myelodysplastic syndrome, unspecified; D53.9 Nutritional anemia, unspecified; D69.6 Thrombocytopenia, unspecified; Z95.810 Presence of automatic (implantable) cardiac defibrillator; Z87.891 Personal history of nicotine dependence; Z79.84 Long term (current) use of oral hypoglycemic drugs; Z79.899 Other long term (current) drug therapy
CPT/HCPCS: 31500; 33967; 80048; 80076; 82803; 83690; 84484; 85025; 85347; 85610; 85730; 86850; 86900; 92928; 92950; 93005; 93308; 99285; 36600; 93454; 94002; J7030; Q9967; A4216; C1725; C1757; C1769; C1876; C1887; C1894; J1327